=== PATIENT | female | born 1985 | race Asian ===

== ENCOUNTER 2021-05-17 11:52 | Emergency (ER) | payer OTHER ==
[~2021-05-17] VITALS: Ht 157.5 cm; Wt 44.5 kg
[2021-05-17 13:04] LABS: BASO # 0.1 (0.0-0.2); BASO % 0.9 % (0.0-2.0); EOS # 0.2 (0.0-0.7); EOS % 2.7 % (0-4.0); GRAN # 2.8 (1.4-6.5); GRAN % 49.8 % (42.2-75.2); HEMATOCRIT 37.6 % (37.0-47.0); HEMOGLOBIN 11.8 g/dl (12.5-16.0); LYMPH % 36.1 % (20.0-51.0); MEAN CELL VOLUME 90 fl (80.0-100.0); MEAN CORPUSCULAR HEMOGLOBIN 28 pg (27.0-31.0); MEAN CORPUSCULAR HGB CONC 31 g/dl (33.0-37.0); MEAN PLATELET VOLUME 9.3 fl (7.4-10.4); MONO # 0.5 (0.1-0.6); MONO % 9.2 % (1.7-9.3); PLATELET COUNT 440 K/mm3 (130-400); RED BLOOD COUNT 4.18 M/mm3 (4.10-5.30); REDCELL DISTRIBUTION WIDTH-CV 12.4 % (11.5-14.5)
[2021-05-17 13:13] LABS: ALANINE AMINOTRANSFERASE 10 U/L (4-34); ALBUMIN 3.9 gm/dL (3.5-5.0); ALKALINE PHOSPHATASE 48 U/L (50-136); ANION GAP 7 mmol/L (7-16); AST,SGOT 19 U/L (15-37); BILIRUBIN,TOTAL 0.3 mg/dL (0.0-1.0); BLOOD UREA NITROGEN 10 mg/dL (7-17); CALCIUM 8.9 mg/dL (8.4-10.2); CARBON DIOXIDE 29 mmol/L (22-30); CHLORIDE 99 mmol/L (98-107); CREATININE, serum 0.77 (0.52-1.25); GLUCOSE 89 mg/dL (74-106); POTASSIUM 4.3 mmol/L (3.4-5.0); SODIUM 135 mmol/L (137-145); TOTAL PROTEIN 7.1 gm/dL (6.4-8.2)
[2021-05-17 13:32] LABS: TROPONIN-I < 0.012 ng/mL (0.000-0.035)
[2021-05-17 14:33] LABS: COLLECTION METHOD CLEAN CATCH
[2021-05-17 14:50] LABS: PH 8 (5-8); SQUAMOUS EPITHELIAL 0-2 /hpf; URINE APPEARANCE Clear; URINE BACTERIA None Seen /hpf; URINE BILIRUBIN Negative (NEGATIVE); URINE BLOOD Negative (NEGATIVE); URINE COLOR Straw; URINE GLUCOSE Negative (NEGATIVE); URINE KETONE Negative (NEGATIVE); URINE LEUKOCYTE ESTERASE Negative (NEGATIVE); URINE NITRATE Negative (NEGATIVE); URINE PROTEIN(semi-quant) Negative (NEGATIVE); URINE RBC 0-2 /hpf; URINE UROBILINOGEN Negative (NEGATIVE)
[2021-05-17 15:30] VITALS: BP 113/75; PULSE 79; TEMP 97.7
== END 2021-05-17 15:30 | disposition home or self-care (01) ==
LOC: COL.ER 11:52
PROVIDERS: Emergency Medicine
DX: U07.1 COVID-19 (principal); Z73.0 Burn-out

== ENCOUNTER 2024-06-11 09:14 | Emergency (ER) | payer OTHER ==
[~2024-06-11] VITALS: Ht 157.5 cm; Wt 52.3 kg
[~2024-06-11 09:14] MED LIST: NORCO 325 MG-51 TAB PO; PROTONIX 40MG T40 MG PO; ZOFRAN ODT4 MG PO
[2024-06-11 09:19] VITALS: BP 109/72; TEMP 97.7
[2024-06-11] MEDS ORDERED: ATARAX50 MG PO (09:54)
[2024-06-11] MEDS ORDERED: CEPHALEXIN500 M1 PO (09:54)
[2024-06-11] MEDS ORDERED: cefTRIAXone 1 G,Lidocaine PF 1% 2.1 ML IM ONE (10:00)
[2024-06-11] MEDS ORDERED: diphenhydrAMINE 25 MG CAP PO ONE (10:00)
[2024-06-11] MEDS ORDERED: dexAMETHasone 10 MG/ML VIAL IM ONE (10:00)
[2024-06-11 10:20] VITALS: PULSE 71
== END 2024-06-11 10:20 | disposition home or self-care (01) ==
LOC: COL.ER 09:14
DX: T78.40XA Allergy, unspecified, initial encounter (principal); L03.114 Cellulitis of left upper limb; X58.XXXA Exposure to other specified factors, initial encounter
CPT/HCPCS: J0696; J1100